=== PATIENT | male | born 2000 | race Caucasian/White ===

== ENCOUNTER 2020-03-02 14:00 | Outpatient (RCR) | payer MEDICAID, SELFPAY ==
--- NOTE | 2020-01-05 19:21 | HP.SP.AD ---
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 Other Relevant Medical History/Diagnoses/Surgery: Pt had been hospitalized with a broken nose, had tonsils adenoids out at the same time. 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 Pt was unable to complete the test in single session. Pt did complete 2 out of 4 tasks. The tasks completed were Planning the Event and Scheduling. The scores are below. TASK #1: PLANNING AN EVENT. Accuracy: (Raw: 4 Percentile: 22 SS: 89). Rational: (Raw: 2 Percentile: <1 SS: 1). Time: (Raw: 6 Percentile: 56 SS: 102). Total Reasoning Sub-skills: (Raw: 15). TASK #2: SCHEDULING. Accuracy: (Raw: 3 Percentile: 3 SS: 51). Rational: (Raw: 0 Percentile: 6 SS: 58). Time: (Raw: 11 Percentile: 89 SS: 116). Total Reasoning Sub-skills: (Raw: 13). The scores strongly indicate a deficit in executive function as the patient demonstrated difficulty with planning and executing tasks, explaining reasoning for how the task was solved, providing answers which were relevant to the task, sequencing the task and reduced insights into deficits. During the assessment, patient did take some notes for each task, ask questions and referred back to the material. However, patient had difficulty with social skills demonstrated by not knowing how to answer questions, providing detail to verbal questions and not showing eyes during evaluation as patient had had on and did not move hat up or move hair out of the way. Plan - Plan Plan: The patient will continue to undergo assessments as necessary to determine best treatment options for noted deficits. The patient requires intensive skilled speech-language intervention targeting higher level cognitive functioning via training and implementation of metacognitive strategy training, with considerations for Time pressure management strategy, [id number]-Cy-Review / Predict-perform procedures and Goal management training. - Recommendations MBS: No Treatment Warranted: No - Frequency Frequency: 1x/Week Duration: 6 Months - Prognosis Prognosis: Good - Goal #1-5 Goal #1: The Patient will complete further cognitive-linguistic/cognitive-communication assessments to determine new goals or modify current goals at any time. Goal #2: The Patient will utilize structured compensatory executive functioning / processing strategies identified and implemented during structured therapeutic to facilitate improved cognitive processing and achievement of the highest level of safe, independent functioning with 100% accuracy over 3 consecutive sessions. Goal #5: Goals to be adjusted at any time during duration of treatment. Education - Patient Instruction Patient Education: Treatment Plan, Goals Other Education: Strongly encouraged patient to obtain copy of 504 Plan and discuss with college about implementing plan for classes. Person Taught: Patient, Legal Guardian Teaching Method: Discussion Response to teaching: Verbalize understanding
== END 2020-03-02 17:00 | disposition home or self-care (01) ==
LOC: SP 14:00
PROVIDERS: PCP Family Medicine; Referring Provider Psychiatry & Neurology Psychiatry; Visit Provider Psychiatry & Neurology Psychiatry
DX: F84.0 Autistic disorder (principal)
CPT/HCPCS: 92507; 92523